=== PATIENT | male | born 1995 | race African-American/Black ===

== ENCOUNTER 2019-10-06 16:27 | Emergency (ER) | payer OTHER ==
[~2019-10-06] VITALS: Ht 180.3 cm; Wt 102.1 kg
[2019-10-06 17:56] VITALS: BP 141/76
== END 2019-10-06 17:50 | disposition home or self-care (01) ==
LOC: ER 16:27
DX: R07.89 Other chest pain (principal); R05 Cough; F17.210 Nicotine dependence, cigarettes, uncomplicated; F12.90 Cannabis use, unspecified, uncomplicated